=== PATIENT | female | born 1965 | race Caucasian/White ===

== ENCOUNTER → 2017-11-19 | Outpatient (CLI) | payer OTHER ==
[2015-04-04 08:00] VITALS: BP 125/50
[~2017-11-19] MED LIST: CYCL10TA2 PO; DOCU-109 PO; HYDR-2762 PO; HYDR-963 PO; IBUP-1060 PO; OXYC-328 PO
--- NOTE | 2017-11-19 08:53 | KCIC ---
MRI Lumbar Spine without contrast History: Lumbar radiculopathy, previous surgeries, low back pain into the right sacral region Technique: Multiplanar, multi sequential noncontrast MR imaging was performed of the lumbar spine. Contrast: None Comparison: March 22, 2015 Findings: Lumbar vertebral body stature and AP alignment are maintained. There is advanced degenerative disc disease L5-S1 somewhat progressed since exam. There is mild degenerative disc disease at L4-5 and L2-3. There is trace L5-S1 endplate edema. Conus terminates at L1. L2-L3: Spinal canal and neural foramina are adequate. There is mild facet degenerative change. L3-L4: There is mild facet degenerative change. Neural foramina and spinal canal are adequate. L4-L5: There is mild facet degenerative change. Spinal canal and neural foramina are adequate. There is right posterior annular tear. L5-S1: There again has been left laminectomy. There is disc osteophyte complex, previously seen protrusion not as apparent, some mild residual signal change along the margin of the osteophytes which may be due to tiny residual protrusion or fibrosis. There is contact of the descending left S1 nerve root although not as significant impingement as previously. There is mild narrowing of the left neural foramen, right neural foramen adequate. There is mild facet degenerative change. Impression: 1. There is more advanced degenerative disc disease L5-S1, minimally at L4-5 and L2-3. There again has been left laminectomy L5-S1, previously seen protrusion at this level not as apparent, mild residual signal change along margin of osteophytes in the left lateral recess near the descending left S1 nerve root without as significant impingement as previously. There is mild narrowing of the left L5-S1 neural foramen. Electronically signed by: Lobo Mcdermott MD (11/19/2017 8:50 AM) [email or web address]
== END | disposition home or self-care (01) ==
LOC: KCIC MRI 07:54
PROVIDERS: ATTEND Physician Assistant Medical
DX: M51.37 Other intervertebral disc degeneration, lumbosacral region (principal); M25.78 Osteophyte, vertebrae; M48.07 Spinal stenosis, lumbosacral region; E87.6 Hypokalemia; Z88.0 Allergy status to penicillin
CPT/HCPCS: 72148

== ENCOUNTER → 2021-06-01 | Outpatient (CLI) | payer OTHER ==
[2015-04-04 08:00] VITALS: BP 125/50
[~2021-06-01] MED LIST changes: +CYCL10TA19 PO; -CYCL10TA2 PO; -HYDR-2762 PO; +HYDR-2765 PO; +HYDR-3135 PO; -HYDR-963 PO; -OXYC-328 PO; +OXYC1TAB22 PO
--- NOTE | 2021-06-01 15:55 | KCIC ---
MRI lumbar spine without contrast HISTORY: Lumbar radicular pain. New left lower extremity pain. Recent fall with new left lower back p ain. COMPARISON: MRI lumbar spine November 19, 2017 FINDINGS: Lumbar vertebral body height and alignment intact. Straightening with some loss of the typi jesus alberto lordosis of the lumbar spine. This is stable. No bone marrow edema of the lumbar spine. Conus ter minates at the L1 vertebral level. Cauda equina is normal. Paraspinal tissues are normal. There is po stsurgical linear scarring at the dorsal paraspinal tissues overlying a probable left L5 hemilaminoto my. There is disc desiccation throughout the lumbar spine to a mild degree. Mild subcutaneous soft ti ssue edema new from the prior study. Lumbar disc disease is described further detail below. L1-L2: No disc bulge or herniation. No spinal canal or neural foraminal stenosis. L2-L3: Mild disc bulge. Mild facet hypertrophy. No spinal canal or neural foraminal stenosis. L3-L4: Minimal posterior disc bulge. Mild facet hypertrophy. No spinal canal or neural foraminal sten osis. L4-L5: Right lateral disc annulus tear, and mild-moderate disc bulge. Facet hypertrophy and mild spur ring. Mild prominent dorsal epidural fat. Very mild narrowing of the neural foramina stable. Mild bud rowing of the lateral recesses about the descending L5 nerve roots without nerve root impingement, st able. Disc bulge and dorsal epidural fat mildly deform the dural sac and contribute to mild spinal ca nal stenosis dural sac diameter is 9 mm. These findings are stable. L5-S1: Left L5 hemilaminotomy and presumably a left paracentral L5-S1 microdiscectomy where there is ill-defined soft tissue signal hypointensity at the left lateral recess similar to the prior exam mos t likely representing scar tissue which narrows the recess and mildly displaces posteriorly the left S1 nerve root sleeve. In the absence of postcontrast imaging there is limited ability to differentiat e between postsurgical scar tissue and small recurrent disc herniation. Marked disc height loss prese nt typical after microdiscectomy and advanced disc disease, moderate circumferential disc osteophyte, and bilateral facet hypertrophy and spurring. Moderate neural foraminal stenoses. No spinal canal st enosis. Stable. IMPRESSION: 1. Postoperative changes of left L5 hemilaminotomy presumably for left paracentral L5-S1 microdiscect anna. There is hypointense signal abnormality of the epidural soft tissues of the left lateral recess most likely representing postsurgical fibrosis which narrows the lateral recess and mildly displaces posteriorly the left S1 nerve roots. This is stable to the prior exam. The spinal canal is decompress ed at this postoperative level. See above. 2. Lumbar disc disease and facet arthrosis contributes to mild spinal canal stenosis and neural marino inal stenoses at L4-L5. There are moderate neural foraminal stenoses at L5-S1. These findings are sta ble. 3. There is mild subcutaneous edema overlying the upper and lower lumbar spine superficial of the lum bodorsal fascia which is new from the prior exam may be dependent edema or given the history of recen t fall injury this could represent soft tissue contusion. Electronically signed by: Brayan Jackson MD (06/01/2021 3:52 PM) [facility]
== END ==
LOC: KCIC MRI 14:19
PROVIDERS: ATTEND Physician Assistant Medical
DX: M47.27 Other spondylosis with radiculopathy, lumbosacral region (principal); M48.061 Spinal stenosis, lumbar region without neurogenic claudication; M25.78 Osteophyte, vertebrae; M40.46 Postural lordosis, lumbar region
CPT/HCPCS: 72148